=== PATIENT | female | born 1995 | race African-American/Black ===

== ENCOUNTER 2016-09-09 17:18 | Emergency (ER) | payer OTHER ==
--- NOTE | 2016-09-09 17:26 | PDOC ---
History of Present Illness - General Chief Complaint: Vaginal Sxs Stated Complaint: R/O STI Time Seen by Provider: 09/09/16 17:23 History Source: Patient Exam Limitations: No Limitations - History of Present Illness Initial Comments: CHIEF COMPLAINT: 20 y/o afebrile female with no significant PMH sent over by PCP for a rocephin shot. HISTORY OF PRESENT ILLNESS: The patient states she saw her [facility] [employer], Dr. Michele , today after being told by a sexual partner that he has gonorrhea. The patient does admit to white vaginal discharge and odor but no other symptoms. Her OB did not have rocephin in her office so sent her here for the shot. Vital signs on arrival are within normal limits. REVIEW OF SYSTEMS: GENERAL/CONSTITUTIONAL: No fever/chills. No weakness. No weight change. HEAD, EYES, EARS, NOSE AND THROAT: No change in vision. No ear pain or discharge. No sore throat. GENITOURINARY: No dysuria, frequency, or change in urination. VAGINAL: +vaginal odor and white discharge. MUSCULOSKELETAL: No joint or muscle swelling or pain. No neck or back pain. SKIN: No rash or easy bruising. NEUROLOGIC: No headache, vertigo, loss of consciousness, or loss of sensation. PHYSICAL EXAM: GENERAL: The patient is awake, alert, and fully oriented, in no acute distress. HEAD: Normal with no signs of trauma. ABDOMEN: Soft, non-distended, non-tender even to deep palpation, no hepatomegaly or splenomegaly, no masses. EXTREMITIES: Normal range of motion, no edema. VAGINAL: Deferred NEUROLOGICAL: Normal speech, normal gait. CN II-XII grossly intact. SKIN: Warm, dry, normal turgor, no rashes or lesions noted. Past History - Past Medical History Allergies/Adverse Reactions: Allergies Allergy/AdvReac Type Severity Reaction Status Date / Time No Known Allergies Allergy Verified 09/09/16 17:20 Home Medications: Ambulatory Orders NK [No Known Home Medication] 09/09/16 Asthma: Yes - Psycho/Social/Smoking Cessation Hx Anxiety: No Suicidal Ideation: No Smoking History: Current every day smoker Have you smoked in the past 12 months: Yes Number of Cigarettes Smoked Daily: 10 Information on smoking cessation initiated: No Hx Alcohol Use: No Drug/Substance Use Hx: No Substance Use Type: None *Physical Exam - Vital Signs Last Vital Signs Temp Pulse Resp BP Pulse Ox 98.7 F 85 18 138/72 100 09/09/16 17:20 09/09/16 17:20 09/09/16 17:20 09/09/16 17:20 09/09/16 17:20 Medical Decision Making - Medical Decision Making A/P: 20 y/o female here after a sexual partner admitted to having gonorrhea. Plan is as follows: 1. hcg 2. UA 3. GC/chlamydia 4. IM ceftriaxone 5. PO azithro Instructed the patient to refrain from sexual intercourse for 1 week and inform all sexual partners that they should be treated. Pt instructed to return to the ER with any worsening or concerning symptoms. The patient verbalizes understanding of all instructions, has no further questions and is awaiting discharge. *DC/Admit/Observation/Transfer Diagnosis at time of Disposition: Exposure to STD - Discharge Dispostion Disposition: HOME Condition at time of disposition: Good - Patient Instructions Printed Discharge Instructions: DI for Gonorrhea Additional Instructions: Discharge Instructions: -You were given IM Rocephin and PO azithromycin for treatment of gonorrhea/ chlamydia. No further treatment is necessary -Inform all sexual partners they should be treated -Avoid sexual intercourse for 1 week -Return to the ER with any worsening or concerning symptoms
[2016-09-09 17:38] VITALS: BP 138/72; PULSE 85; TEMP 98.7; BMI 24.7
[2016-09-09] MEDS ORDERED: AZITHROMYCIN 1 GM PACKET PO ONE (18:00)
[2016-09-09] MEDS ORDERED: AZITHROMYCIN 1 GM PACKET ONE (18:11)
[2016-09-09 18:15] LABS: URINE APPEARANCE CLEAR; URINE BILIRUBIN NEGATIVE (NEGATIVE); URINE BLOOD NEGATIVE (NEGATIVE); URINE COLOR YELLOW; URINE GLUCOSE (UA) NEGATIVE (NEGATIVE); URINE KETONE TRACE (NEGATIVE); URINE NITRITE NEGATIVE (NEGATIVE); URINE PROTEIN NEGATIVE (NEGATIVE); URINE UROBILINOGEN NEGATIVE E.U./dl (0.2-1.0)
[2016-09-09 18:20] LABS: URINE LEUK ESTERASE 2+ (NEGATIVE)
[2016-09-09 21:31] LABS: URINE MUCUS MANY; URINE RBC 8 /hpf (0-3); URINE WBC 37 /hpf (3-5)
== END 2016-09-09 18:38 | disposition home or self-care (01) ==
LOC: JER 17:18
DX: Z11.3 Encounter for screening for infections with a predominantly sexual mode of transmission (principal); F17.210 Nicotine dependence, cigarettes, uncomplicated
CPT/HCPCS: 36415; 81003; 81015; 84703; 87491; 87591; 99281-25